=== PATIENT | male | born 2000 | race Two or more races ===

== ENCOUNTER 2021-06-26 14:41 | Emergency (ER) | payer OTHER ==
[~2021-06-26] VITALS: Ht 172.7 cm; Wt 71.4 kg
[2021-06-26] MEDS ORDERED: IV NORMAL SALINE 1000ML BAG 1,000 ML IV SCH (15:15)
[2021-06-26] MEDS ORDERED: fentaNYL PF VIAL 100 MCG/2 ML VIAL IVP ONE (15:15)
--- NOTE | 2021-06-26 15:42 | PHYS DOC ---
General Adult EDM: Chief Complaint: ABDOMINAL PAIN HPI: HPI: Patient is a 21 year old male who presents with mid lower to right lower quadrant pain that worsened today when he was playing soccer. He stated he also had some pain in his rectum that he cannot explain to me what it felt like. He states that the sharp type pain in his abdomen. He denies testicle pain, Testicular swelling, fever, nausea, vomiting, diarrhea, constipation, headache, dizziness, cough, chest pain, shortness of air. He denies any rectal intercourse. He denies drainage from his rectum. He denies painful movements. He states that his last bowel movement was yesterday and it was normal for him. He denies any blood in his urine or stool. States today this morning he took ibuprofen. He denies any other surgeries or past medical history. Review of Systems: Review of Systems: Constitutional: Denies fever or chills. [] Eyes: Denies change in visual acuity. [] HENT: Denies nasal congestion or sore throat. [] Respiratory: Denies cough or shortness of breath. [] Cardiovascular: Denies chest pain or edema. [] GI: + abdominal pain, denies nausea, vomiting, bloody stools or diarrhea. + Rectal pain [] : Denies dysuria. [] Musculoskeletal: Denies back pain or joint pain. [] Integument: Denies rash. [] Neurologic: Denies headache, focal weakness or sensory changes. [] Endocrine: Denies polyuria or polydipsia. [] Lymphatic: Denies swollen glands. [] Psychiatric: Denies depression or anxiety. [] Heart Score: C/O Chest Pain: No Current Medications: Current Medications Medications (Trade) Dose Ordered Sig/[facility] Start Time Stop Time Status Last Admin Dose Admin Fentanyl Citrate (Fentanyl 2ml Vial) 50 mcg 1X ONCE 06/26/21 15:15 06/26/21 15:16 UNV Sodium Chloride 1,000 ml @ 1,000 mls/hr Q1H 06/26/21 15:15 06/26/21 16:14 UNV Physical Exam: PE: Constitutional: Well developed, well nourished, no acute distress, non-toxic appearance. [] HENT: Normocephalic, atraumatic, bilateral external ears normal, oropharynx moist, no oral exudates, nose normal. [] Eyes: PERRLA, EOMI, conjunctiva normal, no discharge. [] Neck: Normal range of motion, no tenderness, supple, no stridor. [] Cardiovascular:Heart rate regular rhythm, no murmur [] Lungs & Thorax: Bilateral breath sounds clear to auscultation [] Abdomen: Bowel sounds normal, soft, no tenderness, no masses, no pulsatile mas ses. [] Skin: Warm, dry, no erythema, no rash. [] Back: No tenderness, no CVA tenderness. [] Extremities: No tenderness, no cyanosis, no clubbing, ROM intact, no edema. [] Neurologic: Alert and oriented X 3, normal motor function, normal sensory function, no focal deficits noted. [] Psychologic: Affect normal, judgement normal, mood normal. [] Normal physical exam EKG: EKG: [] Radiology/Procedures: Radiology/Procedures: [] Impression: [facility] [address] [place] [address] IMAGING REPORT Signed PATIENT: LOIS PAULINO AACCOUNT: [id number] : 2000 LOCATION: ER AGE: 21 SEX: M EXAM STATUS: REG ER ORD. PHYSICIAN: AMOS BUCIO APRN REASON: mid abdominal sharp pain, rectal pain PROCEDURE: CT ABD PELV W/ IV CONTRST ONLY INDICATION: Reason: mid abdominal sharp pain, rectal pain / Spl. Instructions: IV omni 300 60 mls / History: COMPARISON: None. TECHNIQUE: Axial CT images were obtained through the abdomen and pelvis with intravenous contrast. One or more of the following individualized dose reduction techniques were utilized for this examination: 1. Automated exposure control; 2. Adjustment of the mA and/or kV according to patient size; 3. Use of iterative reconstruction technique. FINDINGS: Vascular: No abdominal aortic aneurysm. Hepatobiliary: No intrahepatic biliary duct dilation. Pancreas: No peripancreatic edema. Spleen: Spleen unremarkable. Renal/Bladder: No hydronephrosis. Urinary bladder is partially distended. Gastrointestinal: No dilated loops of bowel to suggest obstruction. No periappendiceal inflammatory changes. IMPRESSION: * The distal sigmoid to rectal region is distended with air and stool measuring up to approximately 6 cm. No evidence of associated bowel obstruction. * No periappendiceal inflammatory changes. Electronically signed by: Emmanuel Forde MD (06/26/2021 5:09 PM) [id number] DICTATED and SIGNED BY: EMMANUEL FORDE MD DATE: 06/26/21 [id number] 0 Course & Med Decision Making: Course & Med Decision Making Pertinent Labs and Imaging studies reviewed. (See chart for details) See HPI. Alert and oriented x4. Ambulatory steady gait. Speaks in full clear sentences. Denies concern for STD or drainage. Skin pink warm and dry. Vital signs within normal limits. Abdomen is soft and nontender. No CVA tenderness. [] Dragon Disclaimer: Dragon Disclaimer: This electronic medical record was generated, in whole or in part, using a voice recognition dictation system. Departure Departure Impression: Primary Impression: Constipation Qualified Codes: K59.00 - Constipation, unspecified Disposition: HOME / SELF CARE / HOMELESS Condition: STABLE Referrals: NO PCP (PCP) Patient Instructions: Constipation, Adult Additional Instructions: Follow-up with primary care doctor soon as possible. If you begin vomiting or running a fever or having blood in your stool you need to return emergency room. Drink plenty of water to stay hydrated. Scripts Sennosides/Docusate Sodium (SENNA PLUS TABLET) 1 Each Tablet 2 TAB PO QHS for 7 Days, #14 TAB 0 Refills Prov: AMOS BUCIO APRN 06/26/21 AMOS BUCIO APRN Jun 26, 2021 15:42
[2021-06-26] MEDS ORDERED: IOHEXOL 300 MG/ML 100ML VIAL. IV ONE (15:45)
[2021-06-26] MEDS ORDERED: CONTRAST GIVEN. MC PRN (15:45)
[2021-06-26 16:06] LABS: BASO % 0 % (0-3); EOS % 0 % (0-3); HEMOGLOBIN 14.6 g/dL (13.0-17.5); LYMPH # 1.4 x10^3/uL (1.0-4.8); LYMPH % 19 % (24-48); MEAN CORPUSCULAR HEMOGLOBIN 31 pg (25-35); MEAN CORPUSCULAR HGB CONC 34 g/dL (31-37); MEAN CORPUSCULAR VOLUME 90 fL (79-100); MONO # 0.8 x10^3/uL (0.0-1.1); MONO % 11 % (0-9); NEUT # 5.3 x10^3/uL (1.8-7.7); NEUT % 70 % (31-73); PLATELET COUNT 245 x10^3/uL (140-400); RED CELL DISTRIBUTION WIDTH 12.6 % (11.5-14.5); WHITE BLOOD COUNT 7.6 x10^3/uL (4.0-11.0)
[2021-06-26 16:21] LABS: CALCIUM 9.1 mg/dL (8.5-10.1); CREATININE 1.5 mg/dL (0.7-1.3); POTASSIUM 3.9 mmol/L (3.5-5.1)
[2021-06-26 16:29] LABS: ALBUMIN 4.2 g/dL (3.4-5.0); ALBUMIN/GLOBULIN RATIO 1.2 (1.0-1.7); TOTAL BILIRUBIN 0.5 mg/dL (0.2-1.0); TOTAL PROTEIN 7.6 g/dL (6.4-8.2)
[2021-06-26] MEDS ORDERED: IV NORMAL SALINE 1000ML BAG 1,000 ML IV ONE (17:00)
[2021-06-26 17:03] LABS: BILIRUBIN,URINE NEGATIVE (NEG); CLARITY,URINE CLEAR; COLOR,URINE YELLOW; NITRITE,URINE NEGATIVE (NEG); PROTEIN,URINE NEGATIVE (NEG-TRACE); UROBILINOGEN,URINE 0.2 mg/dL (0.2 mg/dL)
[2021-06-26 17:09] LABS: BACTERIA,URINE 0 /HPF (0-FEW); RBC,URINE 0 /HPF (0-2); WBC,URINE 0 /HPF (0-4)
--- NOTE | 2021-06-26 17:11 | RAD ---
INDICATION: Reason: mid abdominal sharp pain, rectal pain / Spl. Instructions: IV omni 300 60 mls / H istory: COMPARISON: None. TECHNIQUE: Axial CT images were obtained through the abdomen and pelvis with intravenous contrast. One or more of the following individualized dose reduction techniques were utilized for this examinat ion: 1. Automated exposure control; 2. Adjustment of the mA and/or kV according to patient size; 3 . Use of iterative reconstruction technique. FINDINGS: Vascular: No abdominal aortic aneurysm. Hepatobiliary: No intrahepatic biliary duct dilation. Pancreas: No peripancreatic edema. Spleen: Spleen unremarkable. Renal/Bladder: No hydronephrosis. Urinary bladder is partially distended. Gastrointestinal: No dilated loops of bowel to suggest obstruction. No periappendiceal inflammatory c hanges. IMPRESSION: * The distal sigmoid to rectal region is distended with air and stool measuring up to approximately 6 cm. No evidence of associated bowel obstruction. * No periappendiceal inflammatory changes. Electronically signed by: Eliot Forde MD (06/26/2021 5:09 PM) [id number]
[2021-06-26] MEDS ORDERED: SENN1TAB62 PO (17:20)
[2021-06-26] MEDS ORDERED: SENNOSIDES 8.6 MG TABLET PO ONE (17:30)
[2021-06-26 18:05] VITALS: BP 109/51
== END 2021-06-26 18:16 | disposition home or self-care (01) ==
LOC: ER 14:41
DX: K59.00 Constipation, unspecified (principal)
CPT/HCPCS: 36415; 74177; 80053; 81001; 83690; 85025; 96361; 96374; 99285; J3010; J7030; Q9967

== ENCOUNTER 2021-11-13 14:40 | Emergency (ER) | payer OTHER ==
[~2021-11-13] VITALS: Ht 175.3 cm; Wt 73.3 kg
[~2021-11-13 14:40] MED LIST: SENN1TAB62 PO
--- NOTE | 2021-11-13 15:07 | PHYS DOC ---
Past Medical History Past Surgical History: No Surgical History Smoking Status: Never Smoker Alcohol Use: Occasionally General Adult EDM: Chief Complaint: DIZZY/LIGHT HEADED HPI: HPI: Patient is a 21 year old male with no significant medical history presented to the ED today complaining of dizziness and intermittent episodes of headaches, symptoms for " a while" 3 years. Patient states the symptoms are random. Denies anything specifically exacerbating or relieving them. He states he just wants to be checked out to make sure everything is okay and have a peace of mind. He states he just came from the gym right now and had some time to come get checked out. Currently rates his headache as 5/10 describing it as throbbing and intermittent. Review of Systems: Review of Systems: Constitutional: Denies fever or chills. [] Eyes: Denies change in visual acuity. [] HENT: Denies nasal congestion or sore throat. [] Respiratory: Denies cough or shortness of breath. [] Cardiovascular: Denies chest pain or edema. [] GI: Denies abdominal pain, nausea, vomiting, bloody stools or diarrhea. [] : Denies dysuria. [] Musculoskeletal: Denies back pain or joint pain. [] Integument: Denies rash. [] Neurologic: Denies headache, focal weakness or sensory changes. [] Endocrine: Denies polyuria or polydipsia. [] Lymphatic: Denies swollen glands. [] Psychiatric: Denies depression or anxiety. [] Heart Score: C/O Chest Pain: N/A Risk Factors: Risk Factors: DM, Current or recent (<one month) smoker, HTN, HLP, family history of CAD, obesity. Risk Scores: Score 0 - 3: 2.5% MACE over next 6 weeks - Discharge Home Score 4 - 6: 20.3% MACE over next 6 weeks - Admit for Clinical Observation Score 7 - 10: 72.7% MACE over next 6 weeks - Early Invasive Strategies Allergies: Allergies: Allergies Coded Allergies Type Severity Reaction Last Updated Verified No Known Drug Allergies 06/26/21 No Physical Exam: PE: Constitutional: Well developed, well nourished, no acute distress, non-toxic appearance. [] HENT: Normocephalic, atraumatic, bilateral external ears normal, oropharynx moist, no oral exudates, nose normal. [] Eyes: PERRLA, EOMI, conjunctiva normal, no discharge. [] Neck: Normal range of motion, no tenderness, supple, no stridor. [] Cardiovascular:Heart rate regular rhythm, no murmur [] Lungs & Thorax: Bilateral breath sounds clear to auscultation [] Abdomen: Bowel sounds normal, soft, no tenderness, no masses, no pulsatile masses. [] Skin: Warm, dry, no erythema, no rash. [] Back: No tenderness, no CVA tenderness. [] Extremities: No tenderness, no cyanosis, no clubbing, ROM intact, no edema. [] Neurologic: Alert and oriented X 3, normal motor function, normal sensory function, no focal deficits noted. Cranial nerves II through XII intact Psychologic: Very jovial. Affect normal, judgement normal, mood normal. [] EKG: EK interpreted by Dr. Menezes sinus rhythm, heart rate 75, mild diffuse ST segment elevations with no reciprocal changes. Patient has no chest pain, no STEMI [] Radiology/Procedures: Radiology/Procedures: []PROCEDURE: CT HEAD WO CONTRAST CT scan of the head without contrast 11/13/2021 Clinical History: Dizziness. Technique: Unenhanced, contiguous, 5 mm axial sections were obtained through the head. One or more of the following individualized dose reduction techniques were utilized for this study: 1. Automated exposure control. 2. Adjustment of the mA and/or kV according to patient size. 3. Use of iterative reconstruction technique. Findings: The ventricles and sulci are within normal limits in size and configuration. No area of abnormal attenuation seen involving the brain parenchyma. No extra-axial fluid collection is noted. No skull fracture is seen. Impression: No acute intracranial abnormality is seen. Electronically signed by: Harlan Cantu MD (11/13/2021 3:59 PM) [id number] DICTATED and SIGNED BY: HARLAN CANTU MD DATE: 11/13/21 [id number] PROCEDURE: PORTABLE CHEST 1V Chest AP portable at 1511: Reason for examination: Dizziness. The heart size is normal. Mediastinum is unremarkable. Lung ramirez are clear. No acute bony abnormalities are seen. Impression: No acute cardiopulmonary disease. Electronically signed by: Elizabeth Bingham MD (11/13/2021 3:29 PM) [id number] DICTATED and SIGNED BY: ELIZABETH BINGHAM MD DATE: 11/13/21 [id number] Course & Med Decision Making: Course & Med Decision Making Pertinent Labs and Imaging studies reviewed. (See chart for details) This a 21-year-old male patient presented to the ED today complaining of intermittent episodes of dizziness and headache, symptoms for 3 years. Vitals on arrival to the ED temperature 99.0, heart rate 91, respirations 17, blood pressure 125/81, O2 sats 99% on room air CBC, CMP, high-sensitivity troponin with no acute findings, EKG noted for nonspecific ST elevations with no depressions. Patient has no chest pain, no shortness of breath. CT of the head, chest x-ray interpreted by radiologist are negative for any acute findings. Patient is in no distress, reassured, discharged home. Follow-up with PCP El Disclaimer: lE Disclaimer: This electronic medical record was generated, in whole or in part, using a voice recognition dictation system. Departure Departure Impression: Primary Impression: Dizziness Additional Impression: Headache Qualified Codes: R51.9 - Headache, unspecified Disposition: HOME / SELF CARE / HOMELESS Condition: STABLE Referrals: NO PCP (PCP) follow up with your doctor in 1-2 weeks Patient Instructions: Dizziness, [id number], Headache, FAQs Additional Instructions: You were evaluated in the emergency room for dizziness and headaches, your CT of the head, chest x-ray, and labs were negative for any acute findings. Please follow-up with your primary care doctor in 1 to 2 weeks. Come back to the ED at any point symptoms worsen MILLIE NGUYEN APRN Nov 13, 2021 15:07
[2021-11-13 15:30] LABS: BASO # 0.1 x10^3/uL (0.0-0.2); BASO % 1 % (0-3); EOS # 0.1 x10^3/uL (0.0-0.7); EOS % 1 % (0-3); HEMATOCRIT 46.2 % (39.0-53.0); HEMOGLOBIN 15.6 g/dL (13.0-17.5); LYMPH # 1.3 x10^3/uL (1.0-4.8); LYMPH % 16 % (24-48); MEAN CORPUSCULAR HEMOGLOBIN 30 pg (25-35); MEAN CORPUSCULAR HGB CONC 34 g/dL (31-37); MEAN CORPUSCULAR VOLUME 89 fL (79-100); MONO # 0.7 x10^3/uL (0.0-1.1); MONO % 8 % (0-9); NEUT # 6.4 x10^3/uL (1.8-7.7); NEUT % 75 % (31-73); PLATELET COUNT 246 x10^3/uL (140-400); RED BLOOD COUNT 5.21 x10^6/uL (4.30-5.70); RED CELL DISTRIBUTION WIDTH 12.7 % (11.5-14.5); WHITE BLOOD COUNT 8.5 x10^3/uL (4.0-11.0)
--- NOTE | 2021-11-13 15:31 | RAD ---
Chest AP portable at 1511: Reason for examination: Dizziness. The heart size is normal. Mediastinum is unremarkable. Lung ramirez are clear. No acute bony abnormali ties are seen. Impression: No acute cardiopulmonary disease. Electronically signed by: Elizabeth Fernández MD (11/13/2021 3:29 PM) [id number]
[2021-11-13 15:40] LABS: CALCIUM 9.2 mg/dL (8.5-10.1); GFR 92.6; POTASSIUM 3.9 mmol/L (3.5-5.1)
[2021-11-13 15:44] VITALS: BP 133/63
[2021-11-13 15:45] LABS: ALBUMIN 4.3 g/dL (3.4-5.0); ALBUMIN/GLOBULIN RATIO 1.1 (1.0-1.7); MAGNESIUM 1.9 mg/dL (1.8-2.4); TOTAL BILIRUBIN 0.4 mg/dL (0.2-1.0); TOTAL PROTEIN 8.3 g/dL (6.4-8.2)
--- NOTE | 2021-11-13 16:01 | RAD ---
CT scan of the head without contrast 11/13/2021 Clinical History: Dizziness. Technique: Unenhanced, contiguous, 5 mm axial sections were obtained through the head. One or more of the following individualized dose reduction techniques were utilized for this study: 1. Automated exposure control. 2. Adjustment of the mA and/or kV according to patient size. 3. Use of iterative reconstruction technique. Findings: The ventricles and sulci are within normal limits in size and configuration. No area of abn ormal attenuation seen involving the brain parenchyma. No extra-axial fluid collection is noted. No s kull fracture is seen. Impression: No acute intracranial abnormality is seen. Electronically signed by: Harlan Cantu MD (11/13/2021 3:59 PM) [id number]
[2021-11-13 16:24] LABS: BILIRUBIN,URINE NEGATIVE (NEG); CLARITY,URINE CLEAR; COLOR,URINE YELLOW; NITRITE,URINE NEGATIVE (NEG); PROTEIN,URINE NEGATIVE (NEG-TRACE); UROBILINOGEN,URINE 0.2 mg/dL (0.2 mg/dL)
[2021-11-13 16:31] LABS: AMPHETAMINE/METHAMPHETAMINE NEG (NEG); BARBITURATES NEG (NEG); BENZODIAZEPINES NEG (NEG); CANNABINOIDS NEG (NEG); COCAINE NEG (NEG); METHADONE NEG (NEG); OPIATES NEG (NEG); PHENCYCLIDINE NEG (NEG)
[2021-11-13 16:49] LABS: BACTERIA,URINE 0 /HPF (0-FEW); RBC,URINE 0 /HPF (0-2); WBC,URINE 0 /HPF (0-4)
--- NOTE | 2021-11-13 20:56 | EKG ---
[facility] [address] [place] [address] Test Date: 2021-11-13 Test Time: 15:28:09 Pat Name: LOIS PAULINO Department: Room: Gender: M Scale Attendant: : 2000 Requested By: MILLIE NGUYEN Order Number: [id number] Reading MD: Measurements Intervals [place] Rate: 75 P: 31 OK: 166 QRS: 62 QRSD: 84 T: 44 QT: 342 QTc: 384 Interpretive Statements SINUS RHYTHM OTHERWISE NORMAL ECG RI6.02 Compared to ECG 11/13/2021 15:27:15 No significant changes
== END 2021-11-13 16:49 | disposition home or self-care (01) ==
LOC: ER 14:40
DX: R42 Dizziness and giddiness (principal); R51.9 Headache, unspecified
CPT/HCPCS: 36415; 70450; 71045; 80053; 80307; 81001; 83735; 84484; 85025; 93005; 99285-25